=== PATIENT | male | born 1960 | race Caucasian/White ===

== ENCOUNTER 2021-03-12 15:00 | Emergency (ER) | payer OTHER ==
[2021-03-12] MEDS ORDERED: Morphine 4 MG/ML Syringe IVPUSH PRN (15:20)
[2021-03-12] MEDS ORDERED: Sodium Chloride 0.9% 10 ML Syringe FLUSH PRN (15:20)
--- NOTE | 2021-03-12 15:23 | EDM.PDOC ---
ED HPI GENERAL MEDICAL PROBLEM - General Chief Complaint: Chest Pain Stated Complaint: [facility] Time Seen by Provider: 03/12/21 15:16 Source of Information: Reports: Patient, Police, RN Notes Reviewed History Limitations: Reports: No Limitations - History of Present Illness INITIAL COMMENTS - FREE TEXT/NARRATIVE: 60-year-old gentleman presents emergency department today complaint of chest pain, he states it came on this morning has progressively gotten worse throughout the day started about 8:00 has had some shortness of breath has had some diaphoresis no nausea. Does have a history of coronary artery disease with stenting 3 vessels last myocardial infarction was 6 months ago received aspirin 1 spray nitro in EMS, rates his pain 2 out of 10 - Related Data Allergies Allergy/AdvReac Type Severity Reaction Status Date / Time No Known Allergies Allergy Verified 03/12/21 15:02 Home Meds: Home Meds Aspirin [Halfprin] 81 mg PO DAILY 03/12/21 [History] Citalopram [Citalopram HBr] 20 mg PO BID 03/12/21 [History] Clopidogrel [Plavix] 1 tab PO DAILY 03/12/21 [History] Ezetimibe 10 mg PO DAILY 03/12/21 [History] Gabapentin [Neurontin] 900 mg PO TID 03/12/21 [History] Losartan Potassium 25 mg PO DAILY 03/12/21 [History] Metoprolol Tartrate 25 mg PO BID 03/12/21 [History] Omeprazole 20 mg PO DAILY 03/12/21 [History] atorvaSTATin [Lipitor] 80 mg PO BEDTIME 03/12/21 [History] hydrOXYzine HCL [Atarax] 25 mg PO TID 03/12/21 [History] Past Medical History HEENT History: Reports: Impaired Vision Cardiovascular History: Reports: CAD, High Cholesterol, Hypertension, [place], Stents Other Cardiovascular History: total of 4 stents Respiratory History: Reports: Sleep Apnea Other Respiratory History: cpap Musculoskeletal History: Reports: Neck Pain, Chronic Psychiatric History: Reports: Anxiety, Depression Hematologic History: Reports: Anticoagulation Therapy - Infectious Disease History Infectious Disease History: Reports: Chicken Pox - Past Surgical History Head Surgeries/Procedures: Reports: None HEENT Surgical History: Reports: None Cardiovascular Surgical History: Reports: Carotid Stents Respiratory Surgical History: Reports: None Musculoskeletal Surgical History: Reports: None Dermatological Surgical History: Reports: None Social & Family History - Tobacco Use Tobacco Use Status *Q: Light Tobacco User Years of Tobacco use: 40 Packs/Tins Daily: 0.1 Used Tobacco, but Quit: No Second Hand Smoke Exposure: No - Caffeine Use Caffeine Use: Reports: Coffee - Recreational Drug Use Recreational Drug Use: No ED ROS GENERAL - Review of Systems Review Of Systems: See Below Constitutional: Reports: Diaphoresis Respiratory: Reports: Shortness of Breath Cardiovascular: Reports: Chest Pain GI/Abdominal: Reports: No Symptoms ED EXAM, GENERAL - Physical Exam Exam: See Below Exam Limited By: No Limitations General Appearance: Alert, WD/WN, No Apparent Distress Respiratory/Chest: No Respiratory Distress, Lungs Clear, Normal Breath Sounds, No Accessory Muscle Use, Chest Non-Tender Cardiovascular: Regular Rate, Rhythm, No Murmur GI/Abdominal: Soft, Non-Tender Extremities: No Pedal Edema Course - Vital Signs Last Recorded V/S: Last Vital Signs Temp 98.2 F 03/12/21 15:14 Pulse 83 03/12/21 15:14 Resp 14 03/12/21 15:14 BP 152/89 H 03/12/21 15:14 Pulse Ox 96 03/12/21 15:14 - Orders/Labs/Meds Orders: Active Orders 24 hr Category Date Time Status Cardiac Monitoring [RC] .As Directed Care 03/12/21 15:20 Active EKG Documentation Completion [RC] ASDIRECTED Care 03/12/21 15:20 Active Peripheral IV Care [RC] . DIRECTED Care 03/12/21 15:20 Active Morphine Med 03/12/21 15:20 Active 4 mg IVPUSH Q10M PRN Sodium Chloride 0.9% [Saline Flush] Med 03/12/21 15:20 Active 10 ml FLUSH ASDIRECTED PRN Peripheral IV Insertion Adult [OM.PC] Stat Oth 03/12/21 15:20 Ordered Saline Lock Insert [OM.PC] Stat Oth 03/12/21 15:20 Ordered EKG 12 Lead [EK] Stat Ther 03/12/21 15:20 Ordered Medication Orders Morphine Sulfate (Morphine 4 Mg/Ml Syringe) 4 mg IVPUSH Q10M PRN PRN Reason: Chest Pain Stop: 03/13/21 15:20 Last Admin: 03/12/21 15:31 Dose: 4 mg Documented by: SYD Sodium Chloride (Sodium Chloride 0.9% 10 Ml Syringe) 10 ml FLUSH ASDIRECTED PRN PRN Reason: Keep Vein Open Last Admin: 03/12/21 15:32 Dose: 10 ml Documented by: SYD Labs: Laboratory Tests 03/12/21 03/12/21 Range/Units 15:31 15:31 WBC 5.1 (4.5-11.0) K/uL RBC 4.83 (4.30-5.90) M/uL Hgb 14.4 (12.0-15.0) g/dL Hct 41.2 (40.0-54.0) % MCV 85 (80-98) fL MCH 30 (27-31) pg MCHC 35 (32-36) % Plt Count 145 L (150-400) K/uL Add Manual Diff Yes Neutrophils % (Manual) 69 H (36-66) % Band Neutrophils % 1 L (5-11) % Lymphocytes % (Manual) 23 L (24-44) % Monocytes % (Manual) 7 H (2-6) % Atypical Lymphocytes Few Helmet Cells Sodium 140 (140-148) mmol/L Potassium 3.9 (3.6-5.2) mmol/L Chloride 103 (100-108) mmol/L Carbon Dioxide 26 (21-32) mmol/L Anion Gap 11.4 (5.0-14.0) mmol/L BUN 16 (7-18) mg/dL Creatinine 1.3 (0.8-1.3) mg/dL Est Cr Clr Drug Dosing 69.14 mL/min Estimated GFR (MDRD) 57 L (>60) Glucose 104 (74-106) mg/dL Calcium 8.1 L (8.5-10.1) mg/dL Total Bilirubin 0.9 (0.2-1.0) mg/dL AST 53 H (15-37) U/L ALT 85 H (12-78) U/L Alkaline Phosphatase 71 (46-116) U/L Troponin I < 0.017 (0.000-0.056) ng/mL Total Protein 6.6 (6.4-8.2) g/dL Albumin 3.7 (3.4-5.0) g/dL Globulin 2.9 (2.3-3.5) g/dL Albumin/Globulin Ratio 1.3 (1.2-2.2) Meds: Medications Generic Name Dose Route Start Last Admin Trade Name Mcq PRN Reason Stop Dose Admin Morphine Sulfate 4 mg 03/12/21 15:20 03/12/21 15:31 Morphine 4 Mg/Ml Syringe IVPUSH 03/13/21 15:20 4 mg Q10M PRN Administration Chest Pain Sodium Chloride 10 ml 03/12/21 15:20 03/12/21 15:32 Sodium Chloride 0.9% 10 Ml Syringe FLUSH 10 ml ASDIRECTED PRN Administration Keep Vein Open Discontinued Medications Generic Name Dose Route Start Last Admin Trade Name Mcq PRN Reason Stop Dose Admin Gabapentin 900 mg 03/12/21 16:23 03/12/21 16:35 Gabapentin 300 Mg Cap PO 03/12/21 16:24 900 mg ONETIME ONE Administration Lorazepam 0.5 mg 03/12/21 16:23 03/12/21 16:35 Lorazepam 2 Mg/Ml Sdv IVPUSH 03/12/21 16:24 0.5 mg ONETIME ONE Administration Departure - Departure Time of Disposition: 17:06 Disposition: Home, Self-Care 01 Condition: Fair Clinical Impression: Atypical chest pain Instructions: Nonspecific Chest Pain, Adult Referrals: PCP,None [Primary Care Provider] - Forms: ED Department Discharge Additional Instructions: Continue with your regular medications, please follow-up with your primary care upon return home, call return to the emergency department worsening symptoms Sepsis Event Note (ED) - Evaluation Sepsis Screening Result: No Definite Risk - Focused Exam Vital Signs: Vital Signs Temp Pulse Resp BP Pulse Ox 03/12/21 15:14 98.2 F 83 14 152/89 H 96 03/12/21 15:11 98.2 F 83 14 152/89 H 96 - My Orders Last 24 Hours: My Active Orders 03/12/21 15:20 Cardiac Monitoring [RC] .As Directed EKG Documentation Completion [RC] ASDIRECTED Peripheral IV Care [RC] . DIRECTED Morphine 4 mg IVPUSH Q10M PRN Sodium Chloride 0.9% [Saline Flush] 10 ml FLUSH ASDIRECTED PRN Peripheral IV Insertion Adult [OM.PC] Stat Saline Lock Insert [OM.PC] Stat EKG 12 Lead [EK] Stat - Assessment/Plan Last 24 Hours: My Active Orders 03/12/21 15:20 Cardiac Monitoring [RC] .As Directed EKG Documentation Completion [RC] ASDIRECTED Peripheral IV Care [RC] . DIRECTED Morphine 4 mg IVPUSH Q10M PRN Sodium Chloride 0.9% [Saline Flush] 10 ml FLUSH ASDIRECTED PRN Peripheral IV Insertion Adult [OM.PC] Stat Saline Lock Insert [OM.PC] Stat EKG 12 Lead [EK] Stat Plan: Assessment Acuity = acute Site and laterality = atypical chest pain Etiology = probable underlying anxiety with current situation Manifestations = none Location of injury = Home Lab values = CBC unremarkable AST at 85 ALT at 53 consistent with elevated liver enzymes troponin is negative EKG no ST elevations or depression chest x-ray unremarkable Plan He did get some relief with combination Ativan gabapentin plan is discharged back to assisted he is can resume his regular medications follow-up with primary care upon return home This note was dictated using [email or web address] voice recognition software please call with any questions on syntax or grammar.
--- NOTE | 2021-03-12 15:52 | CR ---
CHEST: Portable 03/12/2021 at 3:41 PM CLINICAL HISTORY:Chest pain COMPARISON:None FINDINGS: The heart size, pulmonary vascularity and hilar structures are normal. No infiltrate effusion or pneumothorax is seen. There are some left posterior rib fractures which appear to be old IMPRESSION: No acute cardiopulmonary process.
[2021-03-12] MEDS ORDERED: Gabapentin 300 MG Cap PO ONE (16:23)
[2021-03-12] MEDS ORDERED: LORazepam 2 MG/ML SDV IVPUSH ONE (16:23)
== END 2021-03-12 17:21 | disposition home or self-care (01) ==
LOC: JP.ED 15:00
DX: R07.89 Other chest pain (principal); I25.10 Atherosclerotic heart disease of native coronary artery without angina pectoris; E78.00 Pure hypercholesterolemia, unspecified; I10 Essential (primary) hypertension; I25.2 Old myocardial infarction; Z95.5 Presence of coronary angioplasty implant and graft; Z72.0 Tobacco use; Z79.899 Other long term (current) drug therapy; Z79.82 Long term (current) use of aspirin; Z79.02 Long term (current) use of antithrombotics/antiplatelets
CPT/HCPCS: 36415; 71045; 80053; 84484; 85025; 93005; 96374; 96375; 99285; A9270; J2060; J2270